=== PATIENT | female | born 1935 ===

== ENCOUNTER 2018-10-21 16:21 | Inpatient (IN) | payer OTHER, MEDICARE ==
[~2018-10-21] VITALS: Ht 165.1 cm; Wt 60.3 kg
[2018-10-21 17:30] VITALS: BP 179/83
[2018-10-21] MEDS ORDERED: Z GUARD REMEDY PASTE 57 GM TUBE TOP PRN (18:00)
[2018-10-21] MEDS ORDERED: MAG-55 PO (18:24)
[2018-10-21] MEDS ORDERED: MAGN400O6 PO (18:24)
[2018-10-21] MEDS ORDERED: SENN-18 PO (18:24)
[2018-10-21] MEDS ORDERED: ACET-2154 PO (18:24)
[2018-10-21] MEDS ORDERED: PRAM0.253 PO (18:24)
[2018-10-21] MEDS ORDERED: ENOX40DI SQ (18:24)
[2018-10-21] MEDS ORDERED: PANT40TA2 PO (18:24)
[2018-10-21] MEDS ORDERED: DIAZ5TAB PO (18:24)
[2018-10-21] MEDS ORDERED: LOSA50TA39 PO (18:24)
[2018-10-21 18:30] VITALS: BP 146/68
--- NOTE | 2018-10-21 18:37 | NUR ---
PATIENT ARRIVED TO ACUTE REHAB AT 1730 [facility], VITALS ON ADMISSION 179/83, 97.7, 96% ON ROOM AIR, 107HR, VITALS REASSESSED AT 1830: 146/68, 106 HR, COMPLAINTS OF PAIN BUT DENIES PAIN MEDICATION, RIGHT HIP DRESSING NOTED, ABLE TO AMBULATE WITH WALKER TO RESTROOM X 1 PERSON ASSISTED AND WALKER, MD BILLS AND MILITARY TECHNICIAN KAVON Glez NOTIFIED OF PATIENTS ARRIVAL, NO SIGNS OF DISTRESS NOTED, CALL LIGHT IN REACH, WILL ENDORSE ADMISSION TO DESIGN STUDIO CONSULTANT NURSE
[2018-10-21 19:30] VITALS: BP 147/81
--- NOTE | 2018-10-21 19:30 | NUR ---
PATIENT RECEIVED IN BED WITH FAMILY MEMBER AT BEDSIDE. ALERT AND ORIENTED X 4. RIGHT HIP SURGICAL INCISION PHOTOGRAPHED AND DRESSING CHANGED. RIGHT HIP PAIN NOTED TO BE 6/10. TRAMADOL GIVEN FOR PAIN. PATIENT STATES THAT SHE TAKE TRAMADOL REGULARLY AT HOME DESPITE CODEINE BEING AN ACTIVE INGREDIENT IN THE MEDICATION. GROIN REDNESS NOTED, PHOTO TAKEN AN PLACED IN CHART. ASSISTED TO TOILET X1. MRSA SWAB DONE. NO C/O DISTRESS OR SOB ON SHIFT. SERVICE OR WORK DISPATCHER AILS UP BILATERALLY FOR SAFETY. CALL LIGHT AND FREQUENTLY USED ITEMS WITHIN REACH. WILL CONTINUE TO MONITOR.
[2018-10-21] MEDS ORDERED: Medication Not On Formulary EA (Mag Hydrox/Al Hydrox/Simeth (Maalox Max Strength Susp) 3 PO SCH (20:00)
[2018-10-21] MEDS: TRAMADOL HCL 50 MG TABLET PO PRN (20:14)
[2018-10-21] MEDS ORDERED: MAG HYDROX/AL HYDROX/SIMETH 30 ML LIQUID UDC PO PRN (20:45)
[2018-10-21] MEDS: SENNOSIDES 1 TABLET PO SCH (20:57)
[2018-10-21] MEDS: PRAMIPEXOLE 0.25 MG TABLET PO PRN (20:57)
[2018-10-22 00:49] VITALS: BP 147/67
[2018-10-22 05:25] VITALS: BP 152/83
[2018-10-22] MEDS: PANTOPRAZOLE SODIUM 40 MG TABLET.DR PO SCH (06:30)
--- NOTE | 2018-10-22 06:40 | NUR ---
PATIENT SLEPT WELL DURING THE NIGHT. C/O PAIN IN LEFT FOOT, ICE APPLIED TO THE AREA. PRN PAIN MEDICATION GIVEN X1. NO C/O DISTRESS OR SOB. UP TO THE BATHROOM X 3. PATIENT REQUESTING SHOWER TODAY. SIDE RAILS UP BILATERALLY FOR SAFETY. CALL LIGHT AND FREQUENTLY USED ITEMS WITHIN REACH. WILL ENDORSE TO ONCOMING SHIFT ACCORDINGLY.
[2018-10-22 07:30] VITALS: BP 164/84
[2018-10-22] MEDS: ENOXAPARIN SODIUM 40 MG/0.4 ML DISP.SYRIN SQ SCH (08:21)
[2018-10-22] MEDS: LOSARTAN POTASSIUM 50 MG TABLET PO SCH (08:21)
[2018-10-22] MEDS: ACETAMINOPHEN 325 MG TABLET PO PRN ×2 (08:29→17:00)
--- NOTE | 2018-10-22 09:58 | NUR ---
Received pt. in bed, comfortable in no distress. A/OX4 verbally responsive and able to make her needs known. All due medications given and tolerated well. No s/sx of bleeding, on Lovenox. All pt. needs attended and met promptly. Safety measures in place. Call light and all frequently used items within pt. reach.
[2018-10-22] MEDS ORDERED: diphenhydrAMINE 1% CREAM 28.3 GM TUBE TP PRN (14:00)
[2018-10-22] MEDS: PRAMIPEXOLE 0.25 MG TABLET PO PRN ×3 (14:06→22:05)
[2018-10-22 16:00] VITALS: BP 171/85
[2018-10-22] MEDS ORDERED: CLONIDINE HCL 0.1 MG TABLET PO ONE (17:45)
[2018-10-22 17:55] VITALS: BP 144/69
--- NOTE | 2018-10-22 18:17 | NUR ---
End of shift note: No significant change during this shift. All needs attended and met promptly. Safety measures in placed. Bed in low position, brake on, side rails up x2 as an enabler. Noted with elevated BP: 171/85, placed call to Rossi Glez NP and received new order for Clonidine. Pt. refused Clonidine at this time, prefers Losartan, rechecked BP after 30 min, BP: 144/69. Call light and all frequently used items within pt. reach. Will endorse to next shift accordingly
[2018-10-22 19:56] VITALS: BP 146/65
[2018-10-22] MEDS: SENNOSIDES 1 TABLET PO SCH (20:01)
--- NOTE | 2018-10-22 21:00 | NUR ---
Received pt resting in bed. AAO x4. No acute distress noted. No c/o pain or discomfort. Due med given as ordered. Mirapex 2000 PRN given as per pt's request. Safety measures maintained. Call light and personal belongings within reach. Will continue to monitor.
--- NOTE | 2018-10-22 21:53 | NUR ---
Pt asking for another Mirapex. Explained to the pt that she already had one an hour for PRN 1999. Pt insisting that the one she was given was for 6pm and that she is due for 9pm. Explained the situation to the pt that her PRN are at 1500, 1700, and 2000. Pt advised that I will notify MD. Pt is very upset and stated "Why do you have to follow by the book? I always take it and they give it to me whenever I want even it is four times a day?" Pt threatened to call her so he can give her the med himself from home. Pt advised of the hospital's policy and advised to wait for MD's respond. Will continue to monitor.
--- NOTE | 2018-10-22 22:11 | NUR ---
As per Dr. Rivera, melony to give Mirapex. Will continue to monitor.
[2018-10-22] MEDS: DIAZEPAM 5 MG TABLET PO PRN (23:41)
[2018-10-23] MEDS: ACETAMINOPHEN 325 MG TABLET PO PRN ×2 (01:48→08:38)
[2018-10-23 04:40] VITALS: BP 148/65
[2018-10-23] MEDS: PANTOPRAZOLE SODIUM 40 MG TABLET.DR PO SCH (06:32)
[2018-10-23 08:04] VITALS: BP 169/79
[2018-10-23] MEDS: LOSARTAN POTASSIUM 50 MG TABLET PO SCH (08:38)
[2018-10-23] MEDS: ENOXAPARIN SODIUM 40 MG/0.4 ML DISP.SYRIN SQ SCH (08:40)
[2018-10-23] MEDS: PRAMIPEXOLE 0.25 MG TABLET PO PRN ×3 (14:16→22:29)
--- NOTE | 2018-10-23 14:58 | NUR ---
INTERDISCIPLINARY TEAM CONFERENCE
[2018-10-23 16:18] VITALS: BP 160/71
--- NOTE | 2018-10-23 19:10 | NUR ---
Awake during initial rounds. Alert and oriented x4. Able to make needs known. Assisted to the BR voided well. No problem presented. Denies any pain/discomforts at this time. Safety measure and fall precaution maintained. Continue care as planned.
[2018-10-23] MEDS: SENNOSIDES 1 TABLET PO SCH (20:53)
[2018-10-23 21:13] VITALS: BP 161/72
[2018-10-23] MEDS ORDERED: CLONIDINE HCL 0.1 MG TABLET PO ONE (21:15)
--- NOTE | 2018-10-23 21:15 | NUR ---
BP LA 167/75; RA 161/72. Rossi Hoover made aware with order of Clonidine 0.1 mg x 1 now. Patient made aware.
--- NOTE | 2018-10-23 22:35 | NUR ---
BP rechecked, 146/73. No complaint presented.
[2018-10-24] MEDS: PANTOPRAZOLE SODIUM 40 MG TABLET.DR PO SCH (06:12)
--- NOTE | 2018-10-24 06:36 | NUR ---
Shift End Report: Slept well. All needs attended and met. No significant event reported all night. Continue current rehab plan of care.
[2018-10-24 07:03] VITALS: BP 155/69
[2018-10-24 08:06] VITALS: BP 146/82
[2018-10-24] MEDS: ACETAMINOPHEN 325 MG TABLET PO PRN (08:43)
[2018-10-24] MEDS: LOSARTAN POTASSIUM 50 MG TABLET PO SCH (08:44)
[2018-10-24] MEDS: ENOXAPARIN SODIUM 40 MG/0.4 ML DISP.SYRIN SQ SCH (08:48)
[2018-10-24 11:38] VITALS: BP 146/82
[2018-10-24] MEDS: TRAMADOL HCL 50 MG TABLET PO PRN (12:47)
--- NOTE | 2018-10-24 13:42 | NUR ---
INDIVIDUALIZE OVERALL PLAN OF CARE
[2018-10-24] MEDS: PRAMIPEXOLE 0.25 MG TABLET PO PRN ×2 (16:20→22:14)
[2018-10-24 18:09] VITALS: BP 161/72
--- NOTE | 2018-10-24 19:10 | NUR ---
In bed, awake, no s/s of respiratory distress, HOB elevated. Denies any pain/discomforts at this time. Safety measure and fall precaution maintained. Continue care as planned.
[2018-10-24] MEDS: SENNOSIDES 1 TABLET PO SCH (20:41)
[2018-10-24 21:19] VITALS: BP 158/68
[2018-10-24] MEDS: DIAZEPAM 5 MG TABLET PO PRN (23:17)
[2018-10-25] MEDS: TRAMADOL HCL 50 MG TABLET PO PRN (02:27)
--- NOTE | 2018-10-25 02:28 | NUR ---
Complaint of dull/throbbing right leg pain. Tramadol i tab oral given as ordered and needed. Will monitor.
[2018-10-25 05:00] VITALS: BP 161/89
[2018-10-25] MEDS: CLONIDINE HCL 0.1 MG TABLET PO PRN (06:37)
[2018-10-25] MEDS: PANTOPRAZOLE SODIUM 40 MG TABLET.DR PO SCH (06:40)
--- NOTE | 2018-10-25 06:40 | NUR ---
Bp 161/89, Clonidine 0.1 mg given as ordered/needed. Will recheck after an hour. Will endorse .
[2018-10-25 07:50] VITALS: BP 161/86
[2018-10-25] MEDS: LOSARTAN POTASSIUM 50 MG TABLET PO SCH (08:19)
[2018-10-25] MEDS: ENOXAPARIN SODIUM 40 MG/0.4 ML DISP.SYRIN SQ SCH (08:21)
[2018-10-25 16:29] VITALS: BP 145/67
--- NOTE | 2018-10-25 19:10 | NUR ---
In bed when received watching TV. Denies any pain or discomforts at this time. Not in distress. Safety measure nad fall precaution maintained. Continue care as planned.
[2018-10-25] MEDS: PRAMIPEXOLE 0.25 MG TABLET PO PRN ×2 (19:14→22:16)
--- NOTE | 2018-10-25 20:05 | NUR ---
Seen by Dr Otto with no new order noted.
[2018-10-25 20:09] VITALS: BP 147/71
[2018-10-25] MEDS: SENNOSIDES 1 TABLET PO SCH (20:13)
[2018-10-25] MEDS: DIAZEPAM 5 MG TABLET PO PRN (23:00)
[2018-10-26 04:50] VITALS: BP 149/66
[2018-10-26] MEDS: TRAMADOL HCL 50 MG TABLET PO PRN ×2 (05:15→15:32)
--- NOTE | 2018-10-26 05:17 | NUR ---
Complaint of generalized pain, medicated as ordered and needed. Will monitor.
--- NOTE | 2018-10-26 05:37 | NUR ---
Shift End Report: Slept on and off. Medicated once with Tramadol and once for Valiem to relieve her pain and discomforts. Monitored for therapeutic effect. Nurse been in and out her room to attend her needs. All needs attended and met. Made comfortable at all times. No significant event reported all night. Continue current plan of care.
[2018-10-26] MEDS: PANTOPRAZOLE SODIUM 40 MG TABLET.DR PO SCH (06:19)
[2018-10-26 08:00] VITALS: BP 147/71
--- NOTE | 2018-10-26 08:25 | NUR ---
Received patient, awake, alert x4, resting in bed. With surgical wound, dry and intact, no s/s of infection. Denies any pain. Not in any form of distress.
[2018-10-26] MEDS: LOSARTAN POTASSIUM 50 MG TABLET PO SCH (08:55)
[2018-10-26] MEDS: ENOXAPARIN SODIUM 40 MG/0.4 ML DISP.SYRIN SQ SCH (08:58)
--- NOTE | 2018-10-26 09:08 | NUR ---
Patient refused to take half of the tab of Losartan Potassium says she takes only 1 tab at home and if we can just take 1 tab today. Total dose given of 50 mg, instead of 75 mg for Losartan Potassium. Discussed risks and benefits but patient still refused.
--- NOTE | 2018-10-26 10:00 | NUR ---
Up with occupational therapy, tolerating well. Asked if she needed pain medications but refused. Showered with minimum assistance.
[2018-10-26] MEDS: PRAMIPEXOLE 0.25 MG TABLET PO PRN ×3 (15:32→22:15)
[2018-10-26 16:18] VITALS: BP 143/62
[2018-10-26] MEDS: SENNOSIDES 1 TABLET PO SCH (20:01)
[2018-10-26 21:23] VITALS: BP 147/64
--- NOTE | 2018-10-26 22:09 | NUR ---
Received pt in bed, AAO x 4 watching television. No acute distress noted. Verbally responsive and able to make needs known. Denies pain or discomfort at this time. All due medications given as ordered, tolerated well. All safety measures and fall precautions maintained. Call light and all personal belongings within reach. Will continue to monitor.
[2018-10-26] MEDS: DIAZEPAM 5 MG TABLET PO PRN (23:11)
[2018-10-27 06:11] VITALS: BP 154/70
[2018-10-27] MEDS: PANTOPRAZOLE SODIUM 40 MG TABLET.DR PO SCH (06:31)
[2018-10-27 07:30] VITALS: BP 168/78
--- NOTE | 2018-10-27 08:15 | NUR ---
Received patient alert awake x4, resting in bed not in any form of distress. Denies any pain at the moment. With dry and intact surgical dressing, no s/s of infection. Morning care done.
[2018-10-27] MEDS: ENOXAPARIN SODIUM 40 MG/0.4 ML DISP.SYRIN SQ SCH (08:23)
[2018-10-27] MEDS: LOSARTAN POTASSIUM 50 MG TABLET PO SCH (08:23)
--- NOTE | 2018-10-27 10:25 | NUR ---
Up with occupational therapy, tolerating well. No pain noted. Able to ambulate with front wheel walker.
[2018-10-27] MEDS: TRAMADOL HCL 50 MG TABLET PO PRN (12:00)
[2018-10-27] MEDS: PRAMIPEXOLE 0.25 MG TABLET PO PRN ×3 (14:52→22:03)
[2018-10-27 17:08] VITALS: BP 154/73
[2018-10-27] MEDS: CLONIDINE HCL 0.1 MG TABLET PO PRN (19:44)
--- NOTE | 2018-10-27 19:45 | NUR ---
Patient received in bed with family at bedside. Alert and oriented x 4. Requesting MOM for bowel movement. No C/O pain or SOB at this time. Assisted to the bathroom. Side rails up bilaterally for safety. Call light and frequently used times with reach. Will continue to monitor.
[2018-10-27] MEDS: SENNOSIDES 1 TABLET PO SCH (20:24)
[2018-10-27 20:25] VITALS: BP 176/81
[2018-10-27] MEDS: MAGNESIUM HYDROXIDE 30 ML LIQUID UDC PO PRN (21:16)
[2018-10-28 06:31] VITALS: BP 125/65
[2018-10-28] MEDS: PANTOPRAZOLE SODIUM 40 MG TABLET.DR PO SCH (06:32)
--- NOTE | 2018-10-28 06:48 | NUR ---
Patient slept well during police shift commander. No C/O pain or SOB at this time. All due medications given-tolerated well. Side rails up bilaterally for safety. Call light and frequently used times within reach. Will endorse to oncoming shift accordingly.
--- NOTE | 2018-10-28 08:16 | NUR ---
Patient awake, alert, sitting on the side of the bed, not in any form of distress. She denies any pain or discomfort at this time. Assisted with her needs. Call light and frequently used items placed within reach.
[2018-10-28 08:41] VITALS: BP 140/77
[2018-10-28] MEDS: LOSARTAN POTASSIUM 50 MG TABLET PO SCH (09:20)
[2018-10-28] MEDS: ENOXAPARIN SODIUM 40 MG/0.4 ML DISP.SYRIN SQ SCH (09:21)
[2018-10-28] MEDS: ACETAMINOPHEN 325 MG TABLET PO PRN ×2 (10:27→20:42)
--- NOTE | 2018-10-28 10:40 | NUR ---
Patient seen and examined by Dr. Adryan Handy, update given to MD, with no new order at this time.
[2018-10-28 17:01] VITALS: BP 143/68
[2018-10-28] MEDS: PRAMIPEXOLE 0.25 MG TABLET PO PRN ×3 (18:43→22:21)
--- NOTE | 2018-10-28 19:37 | NUR ---
Patient received sitting on the side of the bed, stretching legs. Alert and oriented x 4. No C/O pain or SOB at this time. Assisted to the bathroom. Side rails up bilaterally for safety. Call light and frequently used times with reach. Will continue to monitor.
[2018-10-28] MEDS: SENNOSIDES 1 TABLET PO SCH (20:42)
[2018-10-28 20:45] VITALS: BP 158/89
[2018-10-28] MEDS: DIAZEPAM 5 MG TABLET PO PRN (22:59)
[2018-10-29] MEDS: TRAMADOL HCL 50 MG TABLET PO PRN ×2 (03:40→17:55)
[2018-10-29 06:33] VITALS: BP 152/85
[2018-10-29] MEDS: PANTOPRAZOLE SODIUM 40 MG TABLET.DR PO SCH (06:34)
--- NOTE | 2018-10-29 06:48 | NUR ---
Patient slept well during night stocker. PRN pain medication given x 1. Valium given to assist with sleep. All due medications given-tolerated well. Side rails up bilaterally for safety. Call light and frequently used times within reach. Will endorse to oncoming shift accordingly.
--- NOTE | 2018-10-29 07:36 | NUR ---
Received patient awake, alert, in bed, no noted distress. No complain of any pain or discomfort. Needs attended. Call light placed within reach.
[2018-10-29] MEDS: ENOXAPARIN SODIUM 40 MG/0.4 ML DISP.SYRIN SQ SCH (08:12)
[2018-10-29] MEDS: LOSARTAN POTASSIUM 50 MG TABLET PO SCH (08:17)
[2018-10-29 08:53] VITALS: BP_SYST 157; BP_SYST 178; BP_DIAS 80
--- NOTE | 2018-10-29 11:22 | NUR ---
Dr. Adryan Handy in the unit, informed him regarding noted episodes of high SBP. Per MD he will check into it and will review his meds.
[2018-10-29] MEDS: AMLODIPINE 5 MG TABLET PO SCH (13:38)
[2018-10-29] MEDS: PRAMIPEXOLE 0.25 MG TABLET PO PRN ×3 (16:18→22:05)
[2018-10-29 16:28] VITALS: BP 138/68
--- NOTE | 2018-10-29 19:10 | NUR ---
Awake during initial rounds, watching TV. Denies any pain/discomforts. Assisted to the bathroom. Voided well. safety measure and fall precaution maintained. Continue care as planned.
[2018-10-29 20:45] VITALS: BP 136/68
[2018-10-29] MEDS: SENNOSIDES 1 TABLET PO SCH (21:05)
[2018-10-30] MEDS: ACETAMINOPHEN 325 MG TABLET PO PRN ×2 (00:20→14:55)
[2018-10-30 06:02] VITALS: BP 148/60
--- NOTE | 2018-10-30 06:06 | NUR ---
Shift End Report: Slept well. VS stable. No complaint presented all night. All needs attended and met. No significant event reported. Continue current rehab plan of care.
[2018-10-30] MEDS: PANTOPRAZOLE SODIUM 40 MG TABLET.DR PO SCH (06:27)
--- NOTE | 2018-10-30 08:10 | NUR ---
Received patient, awake, alert x4 resting in bed. Not in any form of distress. Denies any pain. Surgical dressing intact over right hip dry and clean with no S/S of infection.
[2018-10-30 08:15] VITALS: BP 144/72
[2018-10-30] MEDS: LOSARTAN POTASSIUM 50 MG TABLET PO SCH (09:06)
[2018-10-30] MEDS: AMLODIPINE 5 MG TABLET PO SCH (09:06)
[2018-10-30] MEDS: ENOXAPARIN SODIUM 40 MG/0.4 ML DISP.SYRIN SQ SCH (09:15)
--- NOTE | 2018-10-30 10:40 | NUR ---
Up with occupational therapy, patient said said she does not need pain medications for now. Able to ambulate well with front wheel walker to rehab gym.
--- NOTE | 2018-10-30 14:00 | NUR ---
10/25/18 CALLED IN TO HER ROOM SHE SAYS SHE SPILLED HOT WATER ON HER LEGS THAT SHE WAS USING FOR TEA. NOTED REDNESS TO TOP AND INNER ASPECT OF BILAT THIGHS WET TOWELS APPLIED TO LEGS WITH COOL WATER. NOTIFIED SHELL COREMAKER KAVON. SHE SAYS COLD COMPRESS ONLY. REDNESS SUBSIDED AFTER 1 HR OF APPLICATION OF COOL WET TOWELS. SHELL COREMAKER IN TO SEE HER VERBALIZED REDNESS SUBSIDED NO NEW ORDERS NOTED. NO C/O PAIN OR DISCOMFORT.
[2018-10-30] MEDS: PRAMIPEXOLE 0.25 MG TABLET PO PRN ×3 (14:55→21:19)
[2018-10-30 15:10] VITALS: BP 143/66
--- NOTE | 2018-10-30 15:26 | NUR ---
ON 10/25/18 SHE SPILLED A CUP OF HOT WATER ON HER LEGS. NO BLISTERS ONLY REDNESS NOTED. COOL TOWELS APPLIED. NOTIFIED SHORT GOODS DRIER KAVON SAYS SHE WILL COME IN TO SEE. IN NO ACUTE DISTRESS REDNESS SUBSIDING WITH APPLICATION OF COOL WATER TOWELS ORDERED. SHORT GOODS DRIER SAYS TO GIVE TYLENOL IF SHE HAS PAIN. EMERITA WELL. AFTER 1 HOUR REDNESS SUBSIDED. SHORT GOODS DRIER IN TO SEE HER WITH NO NEW ORDERS GIVEN . IN BED RESTING
--- NOTE | 2018-10-30 15:31 | NUR ---
INTERDISCIPLINARY TEAM CONFERENCE
--- NOTE | 2018-10-30 19:05 | NUR ---
Awake, watching TV at this time. Daughter at bedside. Safety measure and fall precaution maintained. Continue care as planned.
[2018-10-30 19:40] VITALS: BP 161/71
[2018-10-30] MEDS: CLONIDINE HCL 0.1 MG TABLET PO PRN (19:52)
[2018-10-30] MEDS: SENNOSIDES 1 TABLET PO SCH (19:52)
--- NOTE | 2018-10-30 20:37 | NUR ---
BP 161/71 Catapres 0.1 mg given as ordered and needed. Patient denied any s/s of hypertension. Will monitor.
[2018-10-30 21:29] VITALS: BP 133/69
--- NOTE | 2018-10-30 21:58 | NUR ---
BP rechecked 133/69 at this time. Catapres effective.
[2018-10-30] MEDS: DIAZEPAM 5 MG TABLET PO PRN (23:36)
[2018-10-31] MEDS: PANTOPRAZOLE SODIUM 40 MG TABLET.DR PO SCH (05:32)
[2018-10-31 05:45] VITALS: BP 131/70
--- NOTE | 2018-10-31 06:03 | NUR ---
Shift End Report: VS stable. Slept well. No complaint presented all night. All needs attended and met. No significant event reported. Continue current rehab plan of care.
[2018-10-31 08:00] VITALS: BP 169/70
[2018-10-31] MEDS: LOSARTAN POTASSIUM 50 MG TABLET PO SCH (08:41)
[2018-10-31] MEDS: ENOXAPARIN SODIUM 40 MG/0.4 ML DISP.SYRIN SQ SCH (08:41)
--- NOTE | 2018-10-31 08:45 | NUR ---
Patient awake, alert, sitting on the side of the bed, not in any form of distress. Patient finished eating breakfast, due medications administered and tolerated well. No complain of any pain or discomfort at this time. Assisted with her needs. Call light and frequently used items placed within reach.
[2018-10-31] MEDS: AMLODIPINE 5 MG TABLET PO SCH (09:00)
[2018-10-31] MEDS: TRAMADOL HCL 50 MG TABLET PO PRN (09:50)
[2018-10-31] MEDS: PRAMIPEXOLE 0.25 MG TABLET PO PRN ×3 (14:38→21:27)
--- NOTE | 2018-10-31 16:10 | NUR ---
Patient seen and examined by Silvestre Price MANAGER FIXED INCOME, update given and informed MANAGER FIXED INCOME regarding patient's complain of redness and feeling sore on bilateral inner thighs which she just noticed today. Patient claims that hot tea was accidentally poured on her thighs about 6 days ago. Per MANAGER FIXED INCOME the skin is dry so just cover with mepilex and secure with kerlix when patient is up with PT/OT and keep open to air when not doing therapy, and continue to monitor.
--- NOTE | 2018-10-31 16:11 | NUR ---
Notified Silvestre Price LAUNDRY PRESS OPERATOR regarding patient's refusal to take amlodipine and if it could be scheduled in the afternoon. Per LAUNDRY PRESS OPERATOR change amlodipine time to 5PM and may start tomorrow.
[2018-10-31 17:12] VITALS: BP 127/61
[2018-10-31 20:10] VITALS: BP 147/61
--- NOTE | 2018-10-31 20:10 | NUR ---
RECEIVED PATIENT ASLEEP IN BED. EASILY AROUSABLE. A/O X4. VERY PLEASANT WHEN APPROACHED. DENIES ANY PAIN OR DISCOMFORT AT THIS TIME. ON RA. NO RESP. DISTRESS NOTED. VS WNL. SKIN CARE PROVIDED. DRESSINGS CLEAN, DRY AND INTACT. CALL LIGHT IN REACH. BED ALARM ON. ALL NEEDS ATTENDED, WILL CONTINUE TO MONITOR AND ASSESS.
[2018-10-31] MEDS: SENNOSIDES 1 TABLET PO SCH (21:27)
[2018-10-31] MEDS: DIAZEPAM 5 MG TABLET PO PRN (22:38)
--- NOTE | 2018-10-31 22:40 | NUR ---
PATIENT ASKING FOR VALIUM. PATIENT GIVEN VALIUM 5MG PO PRN ORDERED PER MD. BED ALARM ON. CALL LIGHT IN REACH. WILL CONTINUE TO MONITOR AND ASSESS.
[2018-11-01] MEDS: TRAMADOL HCL 50 MG TABLET PO PRN (05:27)
[2018-11-01 05:30] VITALS: BP 149/64
--- NOTE | 2018-11-01 05:31 | NUR ---
PATIENT AWAKE IN BED. SLEPT WELL THROUGHOUT THE NIGHT. PATIENT C/O PAIN IN RIGHT HIP 11/02. PATIENT GIVEN ULTRAM 50MG PO PRN FOR PAIN. CALL LIGHT IN REACH. ALL NEEDS ATTENDED, WILL CONTINUE TO MONITOR AND ASSESS.
[2018-11-01] MEDS: PANTOPRAZOLE SODIUM 40 MG TABLET.DR PO SCH (06:32)
[2018-11-01] MEDS: LOSARTAN POTASSIUM 50 MG TABLET PO SCH (08:42)
[2018-11-01] MEDS: ENOXAPARIN SODIUM 40 MG/0.4 ML DISP.SYRIN SQ SCH (08:43)
[2018-11-01] MEDS: PRAMIPEXOLE 0.25 MG TABLET PO PRN ×3 (15:23→21:29)
[2018-11-01] MEDS ORDERED: AMLODIPINE 5 MG TABLET PO SCH (17:00)
--- NOTE | 2018-11-01 19:33 | NUR ---
Patient received in bed watching TV. Alert and oriented x 4. No C/O pain or SOB at this time. Side rails up bilaterally for safety. Call light and frequently used times with reach. Will continue to monitor.
[2018-11-01 20:10] VITALS: BP 153/68
[2018-11-01] MEDS: SENNOSIDES 1 TABLET PO SCH (21:29)
[2018-11-02] MEDS: DIAZEPAM 5 MG TABLET PO PRN ×2 (00:17→23:33)
[2018-11-02] MEDS: ACETAMINOPHEN 325 MG TABLET PO PRN ×2 (00:17→08:47)
[2018-11-02 05:53] VITALS: BP 141/67
[2018-11-02] MEDS: PANTOPRAZOLE SODIUM 40 MG TABLET.DR PO SCH (06:32)
--- NOTE | 2018-11-02 06:43 | NUR ---
Patient slept well during laborer sawmill. PRN Valium given to aid with sleep. All due medications given-tolerated well. Side rails up bilaterally for safety. Call light and frequently used times within reach. Will endorse to oncoming shift accordingly.
--- NOTE | 2018-11-02 08:20 | NUR ---
Patient noted resting in bed, given shower this morning by USER INTERFACE ARTIST, all dressings changed, took all AM medications, complaints of minor right hip pain, PRN Tylenol given as requested, no signs of distress, call light in reach, bed locked and in lowest position
[2018-11-02] MEDS: LOSARTAN POTASSIUM 50 MG TABLET PO SCH (08:45)
[2018-11-02] MEDS: ENOXAPARIN SODIUM 40 MG/0.4 ML DISP.SYRIN SQ SCH (08:53)
[2018-11-02 08:58] VITALS: BP 145/69
[2018-11-02] MEDS: PRAMIPEXOLE 0.25 MG TABLET PO PRN ×3 (13:53→21:35)
[2018-11-02] MEDS: TRAMADOL HCL 50 MG TABLET PO PRN (15:04)
[2018-11-02 16:25] VITALS: BP 147/67
[2018-11-02] MEDS: AMLODIPINE 5 MG TABLET PO SCH (17:33)
[2018-11-02] MEDS: MAGNESIUM HYDROXIDE 30 ML LIQUID UDC PO PRN (18:49)
--- NOTE | 2018-11-02 19:15 | NUR ---
11/03/[address] [address] [address] [facility] [facility] [address] [place] [address] ph: [phone] AM[facility]- 10 AM turkey picker ([phone])
--- NOTE | 2018-11-02 19:35 | NUR ---
Alert and oriented x 4. Received watching TV in bed. No C/O pain or SOB at this time. Side rails up bilaterally for safety. Call light and frequently used times with reach. Will continue to monitor.
[2018-11-02 20:33] VITALS: BP 149/70
[2018-11-02] MEDS: SENNOSIDES 1 TABLET PO SCH (21:35)
[2018-11-03 06:28] VITALS: BP 150/69
[2018-11-03] MEDS: PANTOPRAZOLE SODIUM 40 MG TABLET.DR PO SCH (06:32)
--- NOTE | 2018-11-03 06:48 | NUR ---
Patient slept on and off during shift stacker. PRN Valium given to aid with sleep. All due medications given-tolerated well. Side rails up bilaterally for safety. Call light and frequently used times within reach. Will endorse to oncoming shift accordingly.
[2018-11-03 08:04] VITALS: BP 125/65
[2018-11-03] MEDS: DOCUSATE SODIUM 100 MG CAPSULE PO SCH (08:28)
[2018-11-03] MEDS: LOSARTAN POTASSIUM 50 MG TABLET PO SCH (08:28)
[2018-11-03] MEDS: ENOXAPARIN SODIUM 40 MG/0.4 ML DISP.SYRIN SQ SCH (08:32)
[2018-11-03] MEDS ORDERED: DOCUSATE SODIUM 100 MG/10 ML LIQUID UDC GT SCH (09:00)
[2018-11-03] MEDS: ACETAMINOPHEN 325 MG TABLET PO PRN (09:09)
[2018-11-03] MEDS: PRAMIPEXOLE 0.25 MG TABLET PO PRN ×3 (12:29→21:31)
--- NOTE | 2018-11-03 13:06 | NUR ---
Patient came back from [facility] SX consult for roght hip fracture around 1115am in stable condition, chelle removed. On WBAT as per MD. FF UP in one month. will continue monitor
[2018-11-03] MEDS: AMLODIPINE 5 MG TABLET PO SCH (17:00)
[2018-11-03 17:02] VITALS: BP 127/52
--- NOTE | 2018-11-03 17:25 | NUR ---
Patient refuse amlodipine 20mg PO routine for BP- 127/52 despite of education and encouragement, verbalize she will get it in assistant casino shift manager if blood pressure is high at night time. will endorse
[2018-11-03 20:30] VITALS: BP 151/75
[2018-11-03] MEDS: SENNOSIDES 1 TABLET PO SCH (21:31)
[2018-11-03] MEDS ORDERED: AMLODIPINE 5 MG TABLET PO SCH (22:30)
[2018-11-03] MEDS: DIAZEPAM 5 MG TABLET PO PRN (23:11)
[2018-11-04] MEDS: TRAMADOL HCL 50 MG TABLET PO PRN (04:25)
[2018-11-04 05:29] VITALS: BP 147/49
--- NOTE | 2018-11-04 05:45 | NUR ---
aaox4 needs attended. Vital signs taken at beginning of shift. BP 151/75 HR 104 patient request for her norvasc 10mg (scheduled @ 5pm daily) Explained to her i couldnt give her the norvasc coz its way past 5pm. patient gets agitated. Asked Layda RN to see if she can let her understand the situation. Finally patient request for her Losartan 100mg scheduled daily. she said she only took 50mg of Losartan and demand she wants the other 50mg Losartan but still cant give it. Dr Rivera made aware and ordered Norvasc 5mg @hs, given as ordered. Needs attended. latest BP 147/45 HR 81 Will monitor patient. Kept comfortable.
[2018-11-04] MEDS: PANTOPRAZOLE SODIUM 40 MG TABLET.DR PO SCH (06:32)
[2018-11-04 07:26] LABS: BASOPHILS # (AUTO) 0.1 K/uL (0.0-8.0); BASOPHILS % (AUTO) 1.1 % (0.0-2.0); EOSINOPHILS # (AUTO) 0.1 K/uL (0.0-0.7); EOSINOPHILS % (AUTO) 2.9 % (0.0-7.0); HEMATOCRIT 35.8 % (31.2-41.9); LYMPHOCYTES # (AUTO) 1.7 K/uL (20.0-40.0); LYMPHOCYTES % (AUTO) 39.2 % (20.5-51.5); MEAN CORPUSCULAR HEMOGLOBIN 29.9 uug (24.7-32.8); MEAN CORPUSCULAR HGB CONC 34 g/dL (32.3-35.6); MONOCYTES # (AUTO) 0.5 K/uL (2.0-10.0); MONOCYTES % (AUTO) 11.3 % (0.0-11.0); NEUTROPHILS % (AUTO) 45.5 % (38.5-71.5); PLATELET COUNT (AUTO) 305 K/uL (179-408); RED BLOOD CELL COUNT(AUTO) 4.02 MIL/uL (3.63-4.92); WHITE BLOOD COUNT (AUTO) 4.5 K/uL (3.8-11.8)
[2018-11-04 07:57] LABS: THYROID STIMULATING HORMONE 1.252 mIU/mL (0.358-3.740)
[2018-11-04 08:08] LABS: ALANINE AMINOTRANSFERASE 36 U/L (14-59); ALKALINE PHOSPHATASE 213 U/L (50-136); ASPARTATE AMINOTRANSFERASE 18 U/L (15-37); BILIRUBIN,TOTAL 0.7 mg/dL (0.2-1.0); CARBON DIOXIDE 25 mmol/L (21-32); CHLORIDE 97 mmol/L (98-107); CHOLESTEROL 184 mg/dL (<200); CREATININE 0.7 mg/dL (0.6-1.3); GLUCOSE 135 mg/dL (74-106); HDL CHOLESTEROL 88 mg/dL (40-60); MAGNESIUM 2.1 mg/dL (1.8-2.4); PHOSPHOROUS 3.7 mg/dL (2.5-4.9); POTASSIUM 4.2 mmol/L (3.5-5.1); TOTAL PROTEIN, SERUM 6.4 g/dL (6.4-8.2); TRIGLYCERIDES 57 MG/DL (30-150); UREA NITROGEN, BLOOD 17 mg/dL (7-18)
[2018-11-04] MEDS: DOCUSATE SODIUM 100 MG CAPSULE PO SCH (08:47)
[2018-11-04] MEDS: LOSARTAN POTASSIUM 50 MG TABLET PO SCH (08:48)
[2018-11-04] MEDS: ENOXAPARIN SODIUM 40 MG/0.4 ML DISP.SYRIN SQ SCH (08:52)
--- NOTE | 2018-11-04 09:00 | NUR ---
Patient awake, alert, not in any form of distress. She denies any pain or discomfort at this. Assisted with her needs. Made aware of planned discharge today and she's agreeable. Call light placed within reach.
[2018-11-04 09:03] VITALS: BP 137/60
--- NOTE | 2018-11-04 13:00 | NUR ---
Received an order for discharge to home with home health for PT/OT/nursing services from Dr. Mccollum.
--- NOTE | 2018-11-04 14:00 | NUR ---
Notified Dr. Rivera regarding lab results today, per MD patient is OK for discharge, no new order.
--- NOTE | 2018-11-04 15:00 | NUR ---
Discharge instructions provided to the patient with verbalized understanding. Discharge papers signed by and given to the patient including prescription. All belongings well accounted for. Patient remains alert, coherent, not in any form of distress. No complain of any discomfort. Discharge photos taken. Surgical incision well coaptated, clean and dry with steri-strips on. Bilateral inner thigh redness noted with improvement/healing well. Patient picked up by Randy and his caregiver via private car. Assisted patient to the parking lot via wheelchair.
== END 2018-11-04 15:00 | disposition home health service (06) | DRG 561 ==
PROVIDERS: ADMIT Physical Medicine & Rehabilitation Pain Medicine; ATTEND Physical Medicine & Rehabilitation Pain Medicine
DX: S72.011D Unspecified intracapsular fracture of right femur, subsequent encounter for closed fracture with routine healing (principal); E11.9 Type 2 diabetes mellitus without complications; G25.81 Restless legs syndrome; G89.29 Other chronic pain; M54.5 Low back pain; W18.30XD Fall on same level, unspecified, subsequent encounter; R53.1 Weakness; I10 Essential (primary) hypertension; L29.9 Pruritus, unspecified; Z85.820 Personal history of malignant melanoma of skin; Z90.710 Acquired absence of both cervix and uterus; R26.9 Unspecified abnormalities of gait and mobility; B00.1 Herpesviral vesicular dermatitis; T24.112A Burn of first degree of left thigh, initial encounter; T24.111A Burn of first degree of right thigh, initial encounter; T31.0 Burns involving less than 10% of body surface; X10.0XXA Contact with hot drinks, initial encounter; Y93.89 Activity, other specified; Y92.230 Patient room in hospital as the place of occurrence of the external cause; Z88.5 Allergy status to narcotic agent; Z88.0 Allergy status to penicillin
CPT/HCPCS: 36415; 73502; 83735; 84100; 84443; 85025; 92523; 92526; 92610; 97110; 97112; 97116; 97165; 97530; 97535; J1650